=== PATIENT | female | born 1940 | race Caucasian/White ===

== ENCOUNTER 2016-12-15 09:21 | Day surgery (SDC) | payer OTHER, BC ==
[~2016-12-15] VITALS: Ht 157.5 cm; Wt 88.5 kg
[~2016-12-15 09:21] MED LIST: ASPIRIN81 M2 PO; CELEBREX200 MG PO; CO Q-10100 MG PO; ENDOCET 5-3251 EACH PO; Ecotrin PO; Feosol PO; MULTI VITAMIN1 EACH PO; PRAVACHOL80 MG PO; Pravachol PO; SENOKOT S,PE1 TABLET PO; VITAMIN D2000 UNIT PO; ZESTORETIC 20-1 EAC2 PO; ZYRTEC5 MG PO; Zestoretic,Prinzide PO
[2016-12-15 10:30] VITALS: BP 135/79
[2016-12-15 15:11] VITALS: BP 138/66
[2016-12-15 15:47] VITALS: BP 136/72
== END 2016-12-15 15:54 | disposition home or self-care (01) ==
LOC: SDC → EDBD → SDC 09:21
DX: H25.22 Age-related cataract, morgagnian type, left eye (principal); H33.052 Total retinal detachment, left eye; I10 Essential (primary) hypertension; E78.00 Pure hypercholesterolemia, unspecified; Z79.82 Long term (current) use of aspirin; Z88.0 Allergy status to penicillin
CPT/HCPCS: 88302; J0690; J0713; J1100; J2250; J2405; J3010; J3300